=== PATIENT | male | born 1950 | race Caucasian/White ===

== ENCOUNTER 2020-03-02 18:30 | Emergency (ER) | payer OTHER, SELFPAY ==
--- NOTE | 2020-03-02 18:45 | ED.MALEGU ---
HPI - Male Genitourinary General Chief complaint: Urogenital-Male Stated complaint: uti Source: patient and RN notes reviewed Limitations: no limitations History of Present Illness HPI Narrative: The patient-- non-smoker/nondrinker previously seen by urology-- presents with dysuria. Patient states has been followed by urology with prior cystoscopy for BPH, kidney stone, kidney cyst/mass and is compliant with his meds. Patient complains of new, nearly weeklong history of urinary dysuria, frequency. No hematuria, fever, low back pain, V/D. He recalls his probably had antibiotics, during his last cystoscopy 2 to 3 weeks ago. Patient advised to follow-up with urology Related Data Home Medications Medication Instructions Recorded Confirmed aspirin 81 mg PO DAILY 03/02/20 03/02/20 atorvastatin 20 mg PO DAILY 03/02/20 03/02/20 clonazepam 0.5 mg PO HS 03/02/20 03/02/20 finasteride 1 mg PO DAILY 03/02/20 03/02/20 fluvoxamine 50 mg PO DAILY 03/02/20 03/02/20 levothyroxine 75 mcg PO DAILY 03/02/20 03/02/20 Allergies Allergy/AdvReac Type Severity Reaction Status Date / Time No Known Allergies Allergy Verified 03/02/20 18:50 Review of Systems Review of Systems: Narrative: The patient has been informed that they may have pre-hypertension or Hypertension based on a BP reading in the department. I recommend that the patient call the primary care provider listed on their discharge instructions or a physician of their choice this week to arrange follow up for further evaluation of possible pre-hypertension or Hypertension General/Constitutional: No weight loss,fever Eyes: N0: Redness,discharge Ears/Nose/Throat: No: Epistaxis,ear discharge Respiratory: Denies: Hemoptysis Gastrointestinal: No Vomiting, Bleeding-rectal Skin: No Lumps, eruption Neurologic: No Focal Weakness,Sz Hematologic: Denies: Petechiae/Purpura Psychiatric: No: Suicida ideationl All Other Systems: Reviewed and Negative PMFSH Comments At time of signature, agree with nursing past medical, surgical, social and family history. There is no relevant family history pertinent to the presenting complaint Exam Narrative: Exam Narrative: General Appearance: Well appearing, Conjunctiva clear Ears: External ear normal Nose: Normal nose Mouth/Throat: Normal appearing, Normal lips, Supple Respiratory: Airway patent, No respiratory distress Abdomen: Soft, Non-tender,no CVA T Musculoskeletal: Full ROM Skin: Warm, Dry Neurological: A&O x3, , Normal affect Course Vital Signs Vital signs: Vital Signs Temperature 98.1 F 03/02/20 18:53 Pulse Rate 90 03/02/20 18:53 Respiratory Rate 20 03/02/20 18:53 Blood Pressure 130/93 H 03/02/20 18:53 Pulse Oximetry 99 03/02/20 18:53 Temperature 98.1 F 03/02/20 18:53 Pulse Rate 90 03/02/20 18:53 Respiratory Rate 03/02/20 18:53 Blood Pressure 130/93 H 03/02/20 18:53 Pulse Oximetry 99 03/02/20 18:53 MDM - Male Genitourinary Lab Data Labs: Urine Glucose Negative Reference Range: Negative Urine Bilirubin Negative Reference Range: Negative Urine Ketone Negative Reference Range: Negative Urine Specific [place] 1.025 Reference Range:1.001-1.035 Urine Blood Negative Reference Range: Negative * * Urine pH 5.5 Reference Range: 5.0-9.0 Urine Protein 1+ Reference Range: Negative Urine Urobilinogen 0.2
[2020-03-02 18:53] VITALS: BP 130/93; PULSE 90; RESP 20; TEMP 36.7; O2SAT 99
== END 2020-03-02 19:14 | disposition home or self-care (01) ==
PROVIDERS: Emergency Provider Emergency Medicine
DX: N41.9 Inflammatory disease of prostate, unspecified (principal); R30.0 Dysuria; Z79.82 Long term (current) use of aspirin; E78.00 Pure hypercholesterolemia, unspecified; N40.0 Benign prostatic hyperplasia without lower urinary tract symptoms; E03.9 Hypothyroidism, unspecified; Z87.442 Personal history of urinary calculi; F42.9 Obsessive-compulsive disorder, unspecified
CPT/HCPCS: 81003; 87077; 87086; 87088; 87186; 99213; G0463

== ENCOUNTER 2020-04-04 16:42 | Emergency (ER) | payer OTHER, SELFPAY ==
[2020-04-04 16:51] VITALS: BP 129/87; PULSE 91; RESP 18; TEMP 36.4; O2SAT 99
--- NOTE | 2020-04-04 16:55 | ED.GENADULT ---
HPI - General Adult General Chief complaint: Urogenital-Male Stated complaint: uti Time Seen by Provider: 04/04/20 16:55 Source: patient and RN notes reviewed Mode of arrival: ambulatory Limitations: no limitations History of Present Illness HPI narrative: 69-year-old male presents with complaints of dysuria for the past 7 days. Dysuria consist of burning, frequency, cloudy urine, and urgency.? Lino reports an increase in symptoms over the past 48 hours. He also reports he had a cystoscopy done several days prior to symptoms starting. No treatment.? History of BPH, kidney stones, and dysuria (last treated on 03/02/20) with treatment. Denies fever or chills.? Denies nausea, vomiting, and abdominal pain. Tolerating po intake well. No significant abdominal pain.? No genital discharge.? No concerns for STDs. No flank pain.? Exacerbating factors urinating.? Denies hematuria or genital bleeding.? Tolerating liquids well.? Remains active. The patient reports he have not been diagnosed with COVID-19. The patient reports he is not waiting for the results of a COVID-19 lab test. The patient reports he do not have weakness or fatigue. The patient reports he do not have a new or worsening cough or shortness of breath. Denies chest pain. The patient reports he do not have any rhinorrhea, congestion, loss of taste, sore throat, or diarrhea. Denies recent traveling. Denies concerns for COVID-19 or exposures been home with limited outdoor exposure except for essential household needs and return home. At this time, patient is not suspected of having COVID-19. Some parts of this dictation were generated by voice recognition software and may contain typographical and/or grammatical inaccuracies. Related Data Home Medications Medication Instructions Recorded Confirmed aspirin 81 mg PO DAILY 03/02/20 04/04/20 atorvastatin 20 mg PO DAILY 03/02/20 04/04/20 clonazepam 0.5 mg PO HS 03/02/20 04/04/20 finasteride 1 mg PO DAILY 03/02/20 04/04/20 fluvoxamine 50 mg PO DAILY 03/02/20 04/04/20 levothyroxine 75 mcg PO DAILY 03/02/20 04/04/20 Allergies Allergy/AdvReac Type Severity Reaction Status Date / Time No Known Allergies Allergy Verified 03/02/20 18:50 Review of Systems Review of Systems: Narrative: CONSTITUTIONAL: Denies fever, chills, sweats. EYES: Denies visual changes, redness, discharge. ENT: Denies rhinorrhea, congestion, sore throat, otalgia. CARDIOVASCULAR: Denies chest pain, palpitations, edema. RESPIRATORY: Denies dyspnea, wheezing, cough GASTROINTESTINAL: Denies abdominal pain, nausea, vomiting, diarrhea. GENITOURINARY: Complains of dysuria (consist of burning, frequency, cloudy urine, and urgency), Denies hematuria, abnormal discharge. SKIN: Denies rash or itching. MUSCULOSKELETAL: Denies acute back pain, joint pain, or myalgia. NEUROLOGIC: Denies numbness or focal weakness. PSYCHIATRIC: Denies anxiety or depression. All other systems reviewed are negative, except as documented in HPI and below. [facility] Past Medical History Medical History (Updated 04/04/20 @ 17:43 by ZELDA Go) Anxiety Benign prostatic hyperplasia Growth disorder LT kidney growth Hypercholesteremia Hypothyroidism Inguinal hernia bilateral, non-recurrent Nephrolithiasis Obsessive compulsive disorder Reversal of sterilization Surgical History Surgical History (Updated 04/04/20 @ 17:43 by ZELDA Go) History of cystoscopy History of vasectomy reversal of vasectomy-1992 Hx of inguinal hernia surgery bilateral Family History Family History (Updated 04/04/20 @ 17:45 by ZELDA Go) Father , 1985 due to cancer Parkinson disease Pancreatic cancer Mother , at age 97 Hypertension Social History Social History (Updated 04/04/20 @ 17:46 by ZELDA Go) Smoking status: Former smoker Tobacco type: cigarettes Second hand tobacco smoke exposure: No Alcohol intake:
== END 2020-04-04 17:16 | disposition home or self-care (01) ==
PROVIDERS: Emergency Provider Nurse Practitioner Family; PCP Family Medicine
DX: N39.0 Urinary tract infection, site not specified (principal); Z87.891 Personal history of nicotine dependence; N40.0 Benign prostatic hyperplasia without lower urinary tract symptoms; E78.00 Pure hypercholesterolemia, unspecified; E03.9 Hypothyroidism, unspecified; F41.9 Anxiety disorder, unspecified
CPT/HCPCS: 81003; 87077; 87086; 87088; 87186; 99213; G0463